=== PATIENT | male | born 1950 | race Caucasian/White ===

== ENCOUNTER 2017-12-24 21:26 | Inpatient (IN) ==
[2017-12-24] MEDS ORDERED: Naloxone 0.4 MG/ML INJ IVP PRN (23:04)
[2017-12-24] MEDS ORDERED: Acetaminophen 325 MG TABLET PO PRN (23:04)
[2017-12-24] MEDS ORDERED: Ipratropium/Albuterol Neb 3 ML IH PRN (23:04)
[2017-12-24] MEDS ORDERED: *HR* LORazepam 2 MG/ML VIAL IVP PRN (23:04)
--- NOTE | 2017-12-24 23:16 | Internal Med History&Physical ---
Date of Encounter: 12/24/17 Time of Encounter: 22:45 Internal Medicine - H&P: HPI Chief complaint: ankle fracture Admitted From: Hospital to Hospital Transfer Plans for Post Hospital Care: Home History of present illness: Mr. Kyle is a 67 year old male who presents to [facility] in transfer from [facility] ER after sustaining a trimalleolar fracture of his left ankle. He tripped over a step at his house earlier this evening, and this led to the ankle fracture. He was somewhat intoxicated. He had an elevated alcohol level at the ER at [place]. He had his ankle reduced and splinted in the ER there by Dr. Watson. Patient was unable to go home due to intolerable pain and inability to ambulate. Therefore, a phone call was made to [facility] for transfer for surgical repair. Dr. Watson spoke with Dr. Leavitt from podiatry. At that point, agreement was made to transfer patient here for ongoing medical care and surgical management. Upon arrival, I saw the patient at bedside. He appears to be in no acute distress other than minimal pain in his left ankle. He admits he drinks 6-7 beers per day on a daily basis. He does not feel as though he was drunk today. He is a bit somber, however, as he attended his youngest brother's today. He denies ever going through alcohol withdrawal. However, he has not stopped drinking in quite some time. He denies any other trauma or injury other than his ankle. He did not injure his head or chest wall or abdomen. I reviewed his labs from [place] and note that he has hyponatremia, most likely secondary to chronic alcohol abuse. We will recheck stat labs and repeat them in the morning as well. He denies any cardiac problems, palpitations, dyspnea on exertion, anginal symptoms, and/or prior history of heart disease. His biggest risk factor for perioperative palpitations are his alcohol use/abuse and hyponatremia. Past Med Surg Social Fam HX - Past Medical History Attestation: Yes The following information was validated with the patient. Source: patient, other ([place] ER records) Medical history: arthritis, COPD, hyperlipidemia, hypertension Additional medical history: TREMORS Psychiatric history: anxiety - Past Surgical History Surgical History: other Additional surgical history: skin graft of right arm - Social History Smoking Status: Current every day smoker Smokeless Tobacco Status: No Alcohol use: occasionally, heavy, recent Drug use: none Current living situation: Home, With Family Activity Level: Independent ambulation Recent Out of Country Travel Within the Last 8 Weeks: No - Family History Mother Family Member Ethnicity: Non- Living Status: Age at : 76 Hx Family Cardiac Disorders: No Hx Family Cancer: Yes Hx Family Endocrine Disorder: Yes (DM) Father Living Status: Still Living Hx Family Cardiac Disorders: No Hx Family Respiratory Disorders: No Internal Medicine - H&P: Meds Unable To Obtain [Unable to Obtain] 12/24/17 [History] Allergy/AdvReac Type Severity Reaction Status Date / Time No Known Allergies Allergy Verified 12/24/17 19:44 - Constitutional Constitutional: no chills, no fever(s), no night sweats - EENT Eyes: no blurry vision, no change in vision Ears: no ear pain, no tinnitus Nose, mouth and throat: no nasal congestion, no sinus pressure, no sore throat - Cardiovascular Cardiovascular ROS IM: no chest pain, no diaphoresis, no dyspnea, no dyspnea on exertion, no irregular heart rhythm, no lightheadedness, no orthopnea, no syncope - Respiratory Respiratory: no cough, no dyspnea, no hemoptysis, no wheezing, no chest congestion, no excessive phlegm production, no change in phlegm color - Gastrointestinal Gastrointestinal: no abdominal pain, no diarrhea, no heartburn, no hematemesis, no hematochezia, no melena, no vomiting - Genitourinary Genitourinary ROS male: no dysuria, no flank pain, no hematuria - Musculoskeletal Musculoskeletal ROS IM: arthralgias, deformity (left ankle), joint swelling (left ankle) - Integumentary Integumentary IM: no rash, no jaundice - Neurological Neurological ROS: no behavioral changes, no confusion, no dizziness, no focal weakness, no frequent falls, no headache(s), no numbness, no paresthesias - Psychiatric Psychiatric: no anxiety, no depression - Endocrine Endocrine IM: no polydipsia, no polyuria - Allergic/Immunologic Allergic/Immunologic: no wheezing, no GI upset with certain foods - Constitutional General appearance: Present: cooperative, A&O X 3, pleasant, no acute distress, answers questions appropriately Exam: appears euvolemic - Head Head exam: Present: atraumatic, normal inspection - Eye Eye exam: Present: EOMI, PERRL. Absent: scleral icterus Pupils: Present: PERRL - ENT ENT exam: Present: mucous membranes moist, normal exam, normal oropharynx - Neck Neck exam general surgery: Present: full ROM, supple. Absent: tenderness, nuchal rigidity, thyromegaly - Respiratory Respiratory exam: Present: CTAB. Absent: chest wall tenderness, rales, respiratory distress, rhonchi, wheezes - Cardiovascular Cardiovascular exam: Present: RRR, +S1, +S2. Absent: diastolic murmur, systolic murmur - GI/Abdominal GI/Abdominal exam: Present: normal bowel sounds, soft. Absent: guarding, hepatomegaly, mass, rebound, splenomegaly, tenderness - Extremities Exam Extremities exam: Present: full ROM, normal capillary refill, tenderness (left ankle; splinted and wrapped), warm, radial pulses palpable and symmetrical. Absent: calf tenderness, pedal edema - Back Exam Back exam: Absent: CVA tenderness (L), CVA tenderness (R) - Neurological Exam Neurological exam: Present: alert, CN II-XII intact, oriented X3, no focal deficits, strengths equal and symetr throughout. Absent: motor sensory deficit - Psychiatric Psychiatric exam: Present: normal affect, normal mood - Skin Skin exam: Present: dry, warm. Absent: rash Internal Med - H&P Results - Labs Labs: I reviewed his labs from [place] and include the following: WBC 7.9 Hemoglobin 16.4 Hematocrit 40.2 Platelets 156 Sodium 125 Potassium 4.0 Chloride 89 Carbon dioxide 26 BUN 7 Creatinine 0.62 Ethyl alcohol level 219 - Assessment and plan (1) Dislocation of ankle, left, closed Current Visit: Yes Status: Acute Assessment and plan: 1. S/P closed reduction per Dr. Watson. 2. Consult Podiatry for surgical repair. 3. Pain control as needed. Qualifiers: Encounter type: subsequent encounter Qualified Code(s): S93.05XD - Dislocation of left ankle joint, subsequent encounter (2) Alcohol intoxication Current Visit: Yes Status: Acute Assessment and plan: 1. Monitor clinically. 2. Will place on CIWA protocol and schedule Librium in an attempt to avoid alcohol withdrawal. 3. Will order thiamine/folate/MVI. Qualifiers: Complication of substance-induced condition: uncomplicated Qualified Code(s): F10.920 - Alcohol use, unspecified with intoxication, uncomplicated (3) Hyponatremia Current Visit: Yes Status: Acute Assessment and plan: 1. Likely due to chronic alcoholism. 2. Given smoking history, will order baseline CXR as underlying lung cancer may present with SIADH. (4) DVT prophylaxis Current Visit: Yes Status: Acute Assessment and plan: 1. Heparin SQ.
[2017-12-24] MEDS: Vitamin B Complex/Vit C/Vit E 1 EACH TABLET PO SCH (23:45)
[2017-12-24] MEDS: Folic Acid 1 MG TABLET PO SCH (23:45)
[2017-12-24] MEDS: Nicotine 21 MG PATCH.TD24 TD SCH (23:45)
[2017-12-24] MEDS: Thiamine (B-1) 100 MG TABLET PO SCH (23:45)
[2017-12-25 00:06] LABS: BUN/Creatinine Ratio 10 (6-26); Blood Urea Nitrogen 6 mg/dL (8-23); Calcium 8.7 mg/dL (8.6-10.3); Carbon Dioxide 24 mEq/L (23-29); Chloride 92 mEq/L (98-107); Glucose 98 mg/dL (70-105); Osmolality,Calculated 260 (280-300); Potassium 4.1 mEq/L (3.5-5.1); Sodium 126 mEq/L (136-145); eGFR For Non-African Americans > 60 (> 60)
[2017-12-25] MEDS: *HR* HYDROcodone/Acet 5/325 mg TABLET PO PRN ×3 (02:34→22:03)
[2017-12-25] MEDS: Primidone 50 MG TABLET PO SCH ×2 (02:35→20:34)
[2017-12-25 03:44] LABS: Basophils % 0.4 %; Eosinophils # 0.1 K/mcL (0.0-0.6); Eosinophils % 1.9 %; Hematocrit 39.6 % (37.5-50.1); Hemoglobin 13.9 g/dL (12.9-16.9); Immature Granulocytes % 0.1 % (0-4); Immature Platelets 3.9 % (1.1-6.1); Lymphocytes # 2.6 K/mcL (0.6-4.6); Lymphocytes % 37.2 %; Mean Corpuscular HGB Conc 35.1 g/dL (31.6-35.5); Mean Corpuscular Hemoglobin 30.5 pg (28.0-33.3); Mean Platelet Volume 9.7 fL (9.4-12.4); Monocytes # 0.9 K/mcL (0.0-1.3); Monocytes % 12.8 %; Neutrophils # 3.3 K/mcL (1.6-8.9); Platelet Count 155 K/mcL (140-400); Red Blood Count 4.55 M/mcL (4.19-5.50); Red Cell Distribution Width 12.9 % (11.5-14.5); Segmented Neutrophils % 47.6 %
[2017-12-25 03:51] LABS: INR 1.1; Prothrombin Time 12.5 Seconds (9.4-12.1)
[2017-12-25 03:54] LABS: Activated Partial Thrombo Time 32.4 Seconds (26.0-36.0)
[2017-12-25 04:05] LABS: Alanine Aminotransferase 16 Units/L (7-52); Albumin 3.9 g/dL (3.5-5.7); Albumin/Globulin Ratio 1.3 (1.1-2.2); Alkaline Phosphatase 78 Units/L (34-104); Aspartate Amino Transferase 27 Units/L (13-39); BUN/Creatinine Ratio 9 (6-26); Bilirubin,Total 0.6 mg/dL (0.3-1.0); Blood Urea Nitrogen 8 mg/dL (8-23); Calcium 8.9 mg/dL (8.6-10.3); Carbon Dioxide 23 mEq/L (23-29); Chloride 93 mEq/L (98-107); Ethanol 92 mg/dL (Less than 10); Globulin 3.1 g/dL (2.4-3.5); Glucose 97 mg/dL (70-105); Magnesium 1.6 mg/dL (1.6-2.6); Osmolality,Calculated 262 (280-300); Potassium 3.8 mEq/L (3.5-5.1); Sodium 127 mEq/L (136-145); eGFR For Non-African Americans > 60 (> 60)
[2017-12-25] MEDS: *HR* Heparin 5,000 UNIT/ML VIAL SQ SCH ×2 (06:18→17:22)
[2017-12-25] MEDS: Nicotine 21 MG PATCH.TD24 TD SCH (07:42)
[2017-12-25] MEDS: Thiamine (B-1) 100 MG TABLET PO SCH (07:49)
[2017-12-25] MEDS: Folic Acid 1 MG TABLET PO SCH (07:49)
[2017-12-25] MEDS: Cholecalciferol (D-3) 1,000 UNIT TABLET PO SCH (07:49)
[2017-12-25] MEDS: Vitamin B Complex/Vit C/Vit E 1 EACH TABLET PO SCH (07:49)
--- NOTE | 2017-12-25 09:51 | Podiatry Consult Note ---
Date of Encounter: 12/25/17 Time of Encounter: 09:48 Assessment and Plan (1) Ankle fracture Current visit: No Status: Acute 1. Radiographs and CT reviewed, indicating a displaced trimalleolar left ankle fracture. 2. Surgical intervention warranted given the instability of the ankle even after closed reduction. 3. Plan for ORIF left ankle fracture tomorrow with Dr. Luigi Simon. Please make patient NPO at midnight tonight. 4. Please make sure patient is medically stable prior to surgical intervention and contact Podiatry if any problems arise. 5. NWB left lower extremity in splint which was placed again today. Keep limb elevated for edema control. Qualifiers: Encounter type: initial encounter Fracture type: closed Laterality: left Qualified Code(s): S82.892A - Other fracture of left lower leg, initial encounter for closed fracture History of Present Illness Chief complaint: left ankle fracture HPI: Mr. Kyle is a 67 year old male who presents to [facility] in transfer from [facility] ER after sustaining a trimalleolar fracture of his left ankle. He tripped over a step at his house yesterday and felt a pop in his ankle. He reported intoxication on admission. The ankle was closed reduced in the ED and he was admitted with plans for ORIF of the ankle. Podiatry was consulted to discuss surgical treatment options. He feels well today but does report pain and swelling in the ankle. He has been NWB in a posterior splint. Past Med Surg Social Fam HX - Past Medical History Medical history: arthritis, COPD, hyperlipidemia, hypertension Additional medical history: TREMORS Psychiatric history: anxiety - Past Surgical History Surgical History: other Additional surgical history: skin graft of right arm - Social History Smoking Status: Current every day smoker Smokeless Tobacco Status: No Alcohol use: occasionally, heavy, recent Drug use: none - Family History Mother Family Member Ethnicity: Non- Living Status: Age at : 76 Hx Family Cardiac Disorders: No Hx Family Cancer: Yes Hx Family Endocrine Disorder: Yes (DM) Father Living Status: Still Living Hx Family Cardiac Disorders: No Hx Family Respiratory Disorders: No Medications and Allergies Buspirone HCl [Buspar] 10 mg PO BID 12/25/17 [History] Calcium Carbonate/Vitamin D3 [Calcium 500-Vit D3 200 Tablet] 1 each PO BID 12/25/17 [History] Cholecalciferol (Vitamin D3) [Vitamin D] 1,000 unit PO DAILY 12/25/17 [History] Guaifenesin [Mucinex] 600 mg PO Q12HR 12/25/17 [History] Primidone [Mysoline] 50 mg PO HS 12/25/17 [History] Propranolol HCl 10 mg PO TID 12/25/17 [History] Simvastatin [Zocor] 20 mg PO HS 12/25/17 [History] 3 Allergy/AdvReac Type Severity Reaction Status Date / Time No Known Allergies Allergy Verified 12/24/17 19:44 All Systems Reviewed: The remainder of the systems were reviewed and are negative Physical Exam - Constitutional Vitals: Temp Pulse Resp BP Pulse Ox 97.7 F 56 18 123/62 93 12/25/17 05:26 12/25/17 05:26 12/25/17 05:26 12/25/17 05:26 12/25/17 05:26 Exam: Alert, oriented x3. Vascular: Pulses palpable bilateral. Capillary refill brisk to all digits on left foot. Skin temperature warm to warm comparing toes to legs. Dermatology: No open wounds or lesions. Minimal ecchymosis. Musculoskeletal: Tenderness left medal malleolus, and lateral malleolus. No pain at PT tendon insertion or 5th metatarsal base. There is tenderness at proximal tibia. Moderate edema left ankle. Able to actively move all 5 digits on left. Neuro: Sensations intact to light touch all 5 digits on left. Results - Labs Result Diagrams: 12/25/17 03:16 12/25/17 03:16 Labs: Abnormal lab results PT 12.5 Seconds (9.4-12.1) H 12/25/17 03:16 Sodium 127 mEq/L (136-145) L 12/25/17 03:16 Chloride 93 mEq/L (98-107) L 12/25/17 03:16 Calculated Osmolality 262 (280-300) L 12/25/17 03:16 Ethyl Alcohol 92 mg/dL (Less than 10) H 12/25/17 03:16 H & H 12/25/17 Range/Units 03:16 Hgb 13.9 D (12.9-16.9) g/dL Hct 39.6 (37.5-50.1) % All other labs normal. Consult Discharge Plan - Plan Referrals: NONE,PCP [Primary Care Provider] -
--- NOTE | 2017-12-25 10:20 | Internal Med Progress Note ---
Hospitalist Progress Note - Encounter Date of Encounter: 12/25/17 Time of Encounter: 10:04 - Subjective Interval History: Patient seen and examined this morning. No acute overnight urine. Complained of pain in his left foot. No fever or chills nausea vomiting diarrhea. Slightly bradycardic. Denies any chest pain, palpitation, shortness of breath or abdominal pain. No bowel or bladder complaints - Exam Vitals: Temp Pulse Resp BP Pulse Ox 97.7 F 56 18 123/62 93 12/25/17 05:26 12/25/17 05:26 12/25/17 05:26 12/25/17 05:26 12/25/17 05:26 Exam: General: In no acute distress. Conversant. Respiratory exam: CTAB. no accessory muscle use, rales, rhonchi, wheezes Cardiovascular exam: RRR, +S1, +S2. no murmur, gallop, rubs. GI/Abdominal exam: Non-tender, Non-distended, normal bowel sounds, soft, no peritoneal signs. Extremities exam: no pedal edema, left leg splint present. Neurological exam: CN II-XII intact, AO X3, no focal deficits. no pronater drift, facial droop, speech deficit Skin exam: No skin rash, ulcer, purpura or ecchymosis. - Assessment and Plan (1) Dislocation of ankle, left, closed Current Visit: Yes Status: Inactive (2) Alcohol intoxication Current Visit: Yes Status: Inactive (3) Hyponatremia Current Visit: Yes Status: Inactive (4) DVT prophylaxis Current Visit: Yes Status: Acute - Summary of Assessment and Plan Summary of Assessment and Plan: Trimalleolar left ankle fracture - S/P closed reduction per Dr. Watson. - Pain control with acetaminophen, [place] and Toradol when necessary - Nothing by mouth after midnight for ORIF tomorrow. Podiatry following - No history of hypertension, diabetes, CAD or heart failure. Current smoker. Low risk for surgical complications.. Sinus bradycardia on EKG - Patient on propranolol and primidone for tremors - We will hold propranolol for today. QTC prolonged on EKG from yesterday. - Repeat EKG today Alcohol intoxication - Monitor clinically for withdrawal. No signs currently. Denies any previous history. - c/w CIWA protocol and schedule Librium in an attempt to avoid alcohol withdrawal. - c/w thiamine/folate/MVI. Hyponatremia - Possibly from chronic alcoholism. - CXR with no acute findings. Tobacco dependence - Counseled on cessation. - Continue with nicotine patch DVT prophylaxis - Heparin SQ. - Time Spent with Patient Total time spent is greater than 50% in coordination of care (as documented) at patient's floor/unit and/or counseling patient: Internal Medicine: Result - Labs CBC & Chem 7: 12/25/17 03:16 12/25/17 03:16 Labs: Short CBC 12/25/17 Range/Units 03:16 WBC 6.9 (4.3-11.1) K/mcL Hgb 13.9 D (12.9-16.9) g/dL Hct 39.6 (37.5-50.1) % Plt Count 155 (140-400) K/mcL Neutrophils # 3.3 (1.6-8.9) K/mcL BMP 12/24/17 12/25/17 23:24 03:16 Sodium 126 L 127 L Potassium 4.1 3.8 Chloride 92 L 93 L Carbon Dioxide 24 23 BUN 6 L 8 Creatinine 0.58 L 0.87 Glucose 98 97 Calcium 8.7 8.9 Liver Function 12/25/17 Range/Units 03:16 Total Bilirubin 0.6 (0.3-1.0) mg/dL AST 27 (13-39) Units/L ALT 16 (7-52) Units/L Alkaline Phosphatase 78 (34-104) Units/L Albumin 3.9 (3.5-5.7) g/dL - ABG Interpretation ABG results: PT/INR, D-dimer PT 12.5 Seconds (9.4-12.1) H 12/25/17 03:16 - Impressions Impressions Chest X-Ray 12/25/17 00:01 IMPRESSION: No acute findings in the chest D/ / Valeria Mullins MD / Valeria Mullins MD Interpreting Provider: Valeria Mullins MD Ankle CT 12/25/17 07:45 IMPRESSION: 1. Acute displaced intra-articular posterior malleolus fracture with 7 mm posterior displacement of the dominant posterior malleolus fracture component and 3 mm of articular offset at the posterior tibiotalar joint. Posterior dislocation of the talus in relation to the majority of the distal tibial articular surface. 2. Acute comminuted posteriorly displaced fracture through the distal fibular metaphysis with tiny associated fracture fragments. 3. Transversely oriented slightly displaced medial malleolus fracture. Associated fracture components extend to the medial aspect of the distal tibial metaphysis. 4. Moderate to severe soft tissue swelling and hemorrhage around the ankle and inferior aspect of the left lower leg. 5. Moderate tibiotalar joint effusion. 6. Underlying diffuse osteopenia. D/ / 12/25/2017 10:03:27 Estuardo Daigle MD / paige Interpreting Provider: Estuardo Daigle MD Consult Discharge Plan - Plan Referrals: NONE,PCP [Primary Care Provider] - ____ (1) Dislocation of ankle, left, closed Qualifiers: Encounter type: subsequent encounter Qualified Code(s): S93.05XD - Dislocation of left ankle joint, subsequent encounter (2) Alcohol intoxication Qualifiers: Complication of substance-induced condition: uncomplicated Qualified Code(s): F10.920 - Alcohol use, unspecified with intoxication, uncomplicated
[2017-12-25] MEDS: Ketorolac 15 MG/ML VIAL IVP PRN ×2 (10:28→20:38)
[2017-12-25] MEDS ORDERED: Nicotine 21 MG PATCH.TD24 TD SCH (23:15)
[2017-12-26 04:18] LABS: BUN/Creatinine Ratio 17 (6-26); Blood Urea Nitrogen 10 mg/dL (8-23); Carbon Dioxide 27 mEq/L (23-29); Chloride 95 mEq/L (98-107); Glucose 98 mg/dL (70-105); Osmolality,Calculated 263 (280-300); Potassium 4.3 mEq/L (3.5-5.1); Sodium 127 mEq/L (136-145); eGFR For Non-African Americans > 60 (> 60)
[2017-12-26] MEDS: *HR* Heparin 5,000 UNIT/ML VIAL SQ SCH (05:17)
[2017-12-26] MEDS: *HR* HYDROcodone/Acet 5/325 mg TABLET PO PRN (08:22)
[2017-12-26] MEDS: Folic Acid 1 MG TABLET PO SCH (09:12)
[2017-12-26] MEDS: Vitamin B Complex/Vit C/Vit E 1 EACH TABLET PO SCH (09:12)
[2017-12-26] MEDS: Cholecalciferol (D-3) 1,000 UNIT TABLET PO SCH (09:13)
[2017-12-26] MEDS: Thiamine (B-1) 100 MG TABLET PO SCH (09:13)
--- NOTE | 2017-12-26 09:26 | Internal Med Progress Note ---
Hospitalist Progress Note - Encounter Date of Encounter: 12/26/17 Time of Encounter: 08:26 - Subjective Interval History: Patient seen and examined this morning. No acute overnight urine. Pain more or less controlled. No fever or chills nausea vomiting diarrhea. No chest pain, palpitation, shortness of breath or abdominal pain. NPO for surgery. - Exam Vitals: Temp Pulse Resp BP Pulse Ox 98.1 F 79 18 148/80 93 12/26/17 07:00 12/26/17 07:00 12/26/17 07:00 12/26/17 07:00 12/26/17 07:00 Exam: General: In no acute distress. Conversant. Respiratory exam: CTAB. no accessory muscle use, rales, rhonchi, wheezes Cardiovascular exam: RRR, +S1, +S2. no murmur, gallop, rubs. GI/Abdominal exam: Non-tender, Non-distended, normal bowel sounds, soft, no peritoneal signs. Extremities exam: no pedal edema, left leg splint present. Neurological exam: CN II-XII intact, AO X3, no focal deficits. no pronater drift, facial droop, speech deficit Skin exam: No skin rash, ulcer, purpura or ecchymosis. - Assessment and Plan (1) Dislocation of ankle, left, closed Current Visit: Yes Status: Inactive (2) Alcohol intoxication Current Visit: Yes Status: Inactive (3) Hyponatremia Current Visit: Yes Status: Inactive (4) DVT prophylaxis Current Visit: Yes Status: Acute - Summary of Assessment and Plan Summary of Assessment and Plan: Trimalleolar left ankle fracture - S/P closed reduction per Dr. Watson. - Pain control with acetaminophen, [place] and Toradol when necessary - No history of hypertension, diabetes, CAD or heart failure. Current smoker. Low risk for surgical complications.. - NPO for ORIF today. Podiatry following Sinus bradycardia on EKG - Patient on propranolol and primidone for tremors - hold propranolol - Repeat EKG with NSR Alcohol intoxication - Monitor clinically for withdrawal. No signs currently. Denies any previous history. - c/w CIWA protocol and schedule Librium in an attempt to avoid alcohol withdrawal. PRN ativan while NPO. - c/w thiamine/folate/MVI. Hyponatremia - Possibly from chronic alcoholism. - CXR with no acute findings. Tobacco dependence - Counseled on cessation. - Continue with nicotine patch DVT prophylaxis - Heparin SQ. - Time Spent with Patient Total time spent is greater than 50% in coordination of care (as documented) at patient's floor/unit and/or counseling patient: Internal Medicine: Result - Labs CBC & Chem 7: 12/25/17 03:16 12/26/17 03:44 Labs: BMP 12/26/17 03:44 Sodium 127 L Potassium 4.3 Chloride 95 L Carbon Dioxide 27 BUN 10 Creatinine 0.58 L Glucose 98 Calcium 9.0 - ABG Interpretation ABG results: PT/INR, D-dimer PT 12.5 Seconds (9.4-12.1) H 12/25/17 03:16 - Impressions Impressions Ankle CT 12/25/17 07:45 IMPRESSION: 1. Acute displaced intra-articular posterior malleolus fracture with 7 mm posterior displacement of the dominant posterior malleolus fracture component and 3 mm of articular offset at the posterior tibiotalar joint. Posterior dislocation of the talus in relation to the majority of the distal tibial articular surface. 2. Acute comminuted posteriorly displaced fracture through the distal fibular metaphysis with tiny associated fracture fragments. 3. Transversely oriented slightly displaced medial malleolus fracture. Associated fracture components extend to the medial aspect of the distal tibial metaphysis. 4. Moderate to severe soft tissue swelling and hemorrhage around the ankle and inferior aspect of the left lower leg. 5. Moderate tibiotalar joint effusion. 6. Underlying diffuse osteopenia. D/ / 12/25/2017 10:03:27 Estuardo Daigle MD / paige Interpreting Provider: Estuardo Daigle MD Consult Discharge Plan - Plan Referrals: NONE,PCP [Non-Partnered Physician] - (1) Dislocation of ankle, left, closed Qualifiers: Encounter type: subsequent encounter Qualified Code(s): S93.05XD - Dislocation of left ankle joint, subsequent encounter (2) Alcohol intoxication Qualifiers: Complication of substance-induced condition: uncomplicated Qualified Code(s): F10.920 - Alcohol use, unspecified with intoxication, uncomplicated
[2017-12-26] MEDS ORDERED: *HR* FentaNYL (PF) 100 MCG/2 ML VIAL IVP ONE ×2 (12:51→18:54)
[2017-12-26] MEDS ORDERED: ROPIVACAINE HCL/PF 0.5% 30 ML VIAL ONE (13:37)
[2017-12-26] MEDS ORDERED: Bupivacaine/Clonidine Syringe 1 EACH SYRINGE ONE (13:38)
--- NOTE | 2017-12-26 13:44 | Anesthesia Evaluation PreOp ---
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: Denies Any Significant HX Other Medical History: Denies Any Significant HX Anesthesia History: No Prior Anesthetic Complications Alcohol Use: occasionally, heavy, recent Drug use: none Medications and Allergies Aspirin [Adult Aspirin Regimen] 81 mg PO DAILY 12/25/17 [History] Buspirone HCl [Buspar] 10 mg PO BID 12/25/17 [History] Calcium Carbonate/Vitamin D3 [Calcium 500-Vit D3 200 Tablet] 1 each PO BID 12/25/17 [History] Cholecalciferol (Vitamin D3) [Vitamin D] 1,000 unit PO DAILY 12/25/17 [History] Guaifenesin [Mucinex] 600 mg PO HS 12/25/17 [History] Primidone [Mysoline] 50 mg PO HS 12/25/17 [History] Propranolol HCl 10 mg PO TID 12/25/17 [History] Simvastatin [Zocor] 20 mg PO HS 12/25/17 [History] Allergy/AdvReac Type Severity Reaction Status Date / Time No Known Allergies Allergy Verified 12/24/17 19:44 - Meds/Allergy Pre-op Review Medications Reviewed: Yes Allergies Reviewed: Yes Beta Blockers on Current Med List: No Anesthesia Results - Labs 12/25/17 03:16 12/26/17 03:44 Anesthesia Exam Vital Signs/O2 Sat/Glucose, Most Current Temp Pulse Resp BP Pulse Ox 12/26/17 11:21 98.3 F 75 18 157/82 93 Height: 5'9 Weight: 175 lbs NPO (# of Hours): MN Pain Scale: 0 - HEENT Pupil (Motor): Pupils equal, EOMI Mallampati: III Teeth: Edentulous Oral Opening: Less than or equal to 3 - TELEPHONE TECHNICIAN LOC: Oriented TELEPHONE TECHNICIAN Sensory: Normal: RUE, LUE, RLE, LLE, Face - Cardiac Rhythm: Regular Murmur: None JVD: No Carotid Bruit: No - Pulmonary Breath Sounds: bilateral Clear Respiratory Effort: Symmetrical Anesthesia Assess/Plan ASA Score: 3 (HTN COPD Tobacco) Anesthetic Plan: General, Regional Nerve Block Regional Nerve Block Plan: Adductor canal, Popliteal Autologous Blood: No Monitoring Plan: Standard Monitors Recovery Plan: PACU (Discussed GA, RA, agrees to proceed)
[2017-12-26] MEDS ORDERED: *HR* FentaNYL (PF) 100 MCG/2 ML VIAL ONE ×2 (13:46→16:33)
[2017-12-26] MEDS ORDERED: *HR* Midazolam HCl 2 MG/2 ML VIAL ONE (13:46)
--- NOTE | 2017-12-26 14:09 | Anesthesia Procedures ---
Date of Encounter: 12/26/17 Time of Encounter: 14:06 Procedures: Anesthesia - Nerve Block Procedure Date: 12/26/17 Time: 14:06 Allergies/Adv Reactions: nka Pre-op Diagnosis: left ankle fx Surgical Procedure: orif left ankle Checklist: Correct Patient Identifier, Correct procedure, History checked Correct side: Left Blood Thinner: No Monitor Applied: EKG, BP, Pulse Oximetry Supplemental Oxygen via Nasal Cannula (L/min): 2 Sedation: Versed (mg): 2 Sedation: Fentanyl (mcg): 100 Indication: Post Op Analgesia Pre-op Neuro Deficits: No Block Type: Popliteal, Other (adductor canal) Catheter placed: No Sterile Technique: Yes Ultrasound used: Yes Anatomy identified: Yes Visual spread of Local: Yes Neuro Stimulation: Yes Nerve Stimulator Range: >0.4 - 0.6 mA (for popliteal) Blood on Needle Aspiration: No Smooth Injection of Local: Yes Pain with Injection of Local: No Prep: Chlorhexadine Needle: 22 x 50 mm Stimuplex (for add. canal), 21 x 100 mm Stimuplex (for popliteal) Local: 0.25% Bupivicaine w/Clonidine 20 mcg/cc (for add. canal - 30ml ), Ropivacaine (0.5% for popliteal 30ml) Volume (cc): 60 Number of Attempts: 1 Complications: None/effective block Vitals: Vital Signs/O2 Sat/Glucose, Most Current Temp Pulse Resp BP Pulse Ox 12/26/17 13:52 74 16 158/83 94 12/26/17 11:21 98.3 F 75 18 157/82 93 Comments: pt tolerated procedure well. no complications. vss.
[2017-12-26] MEDS ORDERED: *HR* Propofol 200 MG/20 ML VIAL IVP ONE (14:15)
[2017-12-26] MEDS ORDERED: Ondansetron 4 MG/2 ML VIAL ONE (14:15)
[2017-12-26] MEDS ORDERED: Lidocaine -MPF 2% 2 ML VIAL ONE (14:15)
[2017-12-26] MEDS ORDERED: Dexamethasone 4 MG/ML VIAL ONE (14:15)
[2017-12-26] MEDS ORDERED: ceFAZolin 2,000 MG in Water for inj. (sterile) 20 ML 10 ML IVP ONE (14:20)
[2017-12-26] MEDS ORDERED: CeFAZolin Syr 2,000MG/20 ML 2,000 MG/20 ML SYRINGE IVPB ONE (15:00)
[2017-12-26] MEDS ORDERED: *HR* Promethazine 25 MG/ML VIAL IVP PRN ×2 (15:40→18:54)
[2017-12-26] MEDS ORDERED: *HR* OxyCODONE/APAP 5/325 TABLET PO PRN ×2 (15:40→18:54)
[2017-12-26] MEDS ORDERED: *HR* HYDROmorphone (PF) 1 MG/ML SYRINGE IVP PRN ×2 (15:40→18:54)
[2017-12-26] MEDS: Albuterol 2.5 MG/3 ML NEBULIZER IH ONE ×2 (16:27→18:22)
--- NOTE | 2017-12-26 17:51 | Orthopedic Operative Note ---
Date of procedure: 12/26/17 Pre-op diagnosis: left trimalleolar ankle fracture Post-op diagnosis: same Procedure: 12/26/17 17:50 1. Open reduction with internal fixation left trimalleolar ankle fracture with fixation of posterior malleolus Implants: 1. Synthes 7 hole 1/3 tubular plate 2. Synthes 3.5mm cortical screw x1 3. Synthes 3.5mm locking screw x3 4. Synthes 3.5mm cancellous screw x1 5. Synthes 4.0mm cannulated partially threaded screw x3 Complications: None Anesthesia: DEBORAA, regional Surgeon: Luigi Simon Was there an chemist assistant present: No Estimated blood loss (cc): 15 Tourniquet Time (Minutes): 120 Specimen: None Condition: stable Disposition: floor Procedure in Detail: 12/26/17 17:54 INDICATIONS AND CONSENT Don Kyle is a 67 year old male who originally presented with left ankle pain and injury from a fall from steps in the home on 12/24/2017 while intoxicated. Radiographs indicated a displaced trimalleolar ankle fracture which was closed reduced in the ED. CT showed evidence of a comminuted medial malleolus fracture, spiral oblique distal fibular fracture, and posterior malleolar fracture with displacement. Given the radiographic findings, surgical intervention was warranted. The patient elected to proceed with open reduction with internal fixation of the ankle fracture. We discussed the above procedures in detail. This included a discussion on the indications, contraindications, and possible complications including but not limited to: infection, non-healing wound, pain, swelling, bleeding, blood clots, heart complications, nerve injury, vascular injury, loss of limb, loss of life, non-union, malunion, arthritis, hardware failure, and need for further surgery. Patient has a long history of smoking which places him at risk for non-union or wound complications. We also reviewed the expected post operative course, including a discussion on the non- weightbearing status after this procedure. He related understanding of our discussion regarding this surgery. All questions were answered to his satisfaction, and a proper written informed consent was obtained, signed, and placed in the chart. No guarantees were given, stated or implied, as to the out come of this procedure. PROCEDURE IN DETAIL The patient was seen in the pre-operative holding area by Anesthesia, where he was consented for General Anesthesia with regional popliteal fossa and saphenous nerve block. The popliteal fossa and saphenous nerve blocks were performed under ultrasound guidance by Anesthesia in the pre-operative holding area. The patient was then brought back to the operative suite and placed on the operating room table in the prone position due to plans of fixing the posterior malleolus fracture. A sign-in was performed. General anesthesia was then initiated [facility]. A well-padded pneumatic left thigh tourniquet was then placed. Next, the left lower leg was scrubbed, prepped, and draped in the usual aseptic manner. A Amber Time-Out was performed, and all parties in the room agreed. Next, an Esmarch was used to exsanguinate the left foot. The pneumatic thigh tourniquet was inflated to 300 mmHg. Attention was then directed to the left postero-lateral leg where an approximate 7 cm linear incision was made posterior to the fibula. The incision was carried deep to the level of peroneal tendons, paying careful attention to retract the lesser saphenous vein and sural nerve. Hematoma and signs of post-traumatic injury were evident. The hematoma was evacuated. The incision was carried down to the level of bone in anatomic layers, paying particular attention to protect and retract all vital neurovascular structures and the peroneal tendons. With the incision down to bone, the fracture site was identified and noted to be a displaced, spiral oblique fracture. A jean elevator was used to elevate the periosteum both proximal and distal to the fracture site prior to plate fixation. The wound was flushed with copious amounts of sterile saline. The fracture was reduced and stabilized utilizing a point to point bone clamp. The fibula was held out to appropriate anatomic length, confirmed and verified under fluoroscopy. A 3.5mm lag screw, by AO technique, was thrown obliquely and perpendicular to the fracture site from posterior distal to proximal distal for appropriate compression and stability. Next a 7 hole hole 1/3 tubular neutralization plate was placed laterally for added stability across the fracture site which was fixated using one nonlocking 3.5mm screw proximally, two 3.5mm locking screws proximally, one 3.5mm locking screw distally, and one 4.0mm cancellous screw distally. Stability at the fracture site was noted both clinically and under fluoroscopy with maintenance of reduction and confucianism of fibular length. Our attention was then directed to the posterior malleolus fracture, which was noted to involve greater than 25% of the tibial plafond on CT scan with dorsal displacement. Decision was made to fixate the posterior malleolus fracture. The soft tissue lateral to the Achilles tendon was retracted, and a cannulated 4.0mm screw was placed from posterior to anterior to fixate the fragment. Attention was then directed to the displaced, comminuted medial malleolus fracture. A linear incision was made at the distal aspect of the medial malleolus. The incision was carried deep to the level of bone. The fracture fragments were reduced then temporarily fixated with two k-wires. Two 4.0mm cannulated partially threaded screws were then placed from distal medial to proximal lateral through the medial malleolus fracture to fixate the fragment. Stability of the hardware and proper anatomic reduction of the ankle mortise was noted under fluoroscopy. The guidewires were removed. The wounds were then flushed with copious amounts of normal sterile saline. Next, deep and subcutaneous tissues were re-approximated using 2-0 vicryl and 3-0 vicryl, and the skin was re-approximated under minimal tension using ruthy to the lateral ankle and 4-0 nylon to the medial ankle wound. A dry, sterile dressing was then applied, which consisted of: Xeroform, 4x4's, Kerlix fluffs, ABDs, and Kerlix roll. The left thigh tourniquet was then deflated, and a proper hyperemic response was noted to the digits on the left foot. Capillary refill time of the toes on the left foot was also noted to be brisk at this time. A well-padded posterior splint was applied with the foot 90 degrees relative to the lower leg. The posterior splint was then secured to the foot and leg using an ROSA MARIA bandage. A sign-out was performed. The patient tolerated anesthesia and the procedure well, and was transferred to PAC-U with vital signs stable and vascular status intact to the left lower extremity. Needle and sponge counts were correct X 2 at the end of the case. Dr. Luigi Simon was present, scrubbed, and participated in all vital aspects of the procedure. After a brief stay in PAC-U, the patient will be admitted back to the floor for continued monitoring. Ancef will be extended for 24 hours following the procedure. Smoking cessation was again following the procedure. 12/26/17 18:29
--- NOTE | 2017-12-26 18:30 | Anesthesia Evaluation Post Op ---
Date of Encounter: 12/26/17 Time of Encounter: 18:29 - Vital Signs Vital Signs: Last Vital Signs Temp 99.7 F H 12/26/17 18:00 Pulse 90 12/26/17 18:20 Resp 16 12/26/17 18:20 BP 129/71 12/26/17 18:20 Pulse Ox 92 12/26/17 18:20 - Lungs Lungs: Clear Ascult./Percussion - Airway Airway: Non-obstructed - Cardiovascular Regular Rate - Mental Status Mental Status: Alert & Oriented, Answers Appropriately - Pain Pain Scale: 2 - Nausea Vomiting Nausea Vomiting: Not Present - Hydration Hydration: NPO - Discharge PostOp Status: Transfer Patient to floor
[2017-12-26] MEDS ORDERED: *HR* LORazepam 2 MG/ML VIAL IVP PRN (18:54)
[2017-12-26] MEDS ORDERED: Naloxone 0.4 MG/ML INJ IVP PRN (18:54)
[2017-12-26] MEDS ORDERED: CeFAZolin Syr 2,000MG/20 ML 2,000 MG/20 ML SYRINGE IVPB SCH (18:54)
[2017-12-26] MEDS ORDERED: Acetaminophen 325 MG TABLET PO PRN (18:54)
[2017-12-26] MEDS ORDERED: Ketorolac 15 MG/ML VIAL IVP PRN (18:54)
[2017-12-26] MEDS ORDERED: *HR* HYDROcodone/Acet 5/325 mg TABLET PO PRN (18:54)
[2017-12-26] MEDS ORDERED: Ipratropium/Albuterol Neb 3 ML IH PRN (18:54)
[2017-12-26] MEDS: Primidone 50 MG TABLET PO SCH (20:24)
[2017-12-26] MEDS: Nicotine 21 MG PATCH.TD24 TD SCH (20:24)
[2017-12-27] MEDS ORDERED: ceFAZolin 1,000 MG in Water for inj. (sterile) 20 ML 10 ML IVP SCH
[2017-12-27] MEDS: *HR* Heparin 5,000 UNIT/ML VIAL SQ SCH ×3 (05:12→19:43)
[2017-12-27 06:28] LABS: Hematocrit 38.2 % (37.5-50.1); Hemoglobin 13.2 g/dL (12.9-16.9); Immature Granulocytes % 0.4 % (0-4); Lymphocytes # 0.7 K/mcL (0.6-4.6); Lymphocytes % 9.1 %; Mean Corpuscular HGB Conc 34.6 g/dL (31.6-35.5); Mean Corpuscular Volume 89.7 fL (83.0-100.0); Monocytes # 0.8 K/mcL (0.0-1.3); Monocytes % 10.7 %; Platelet Count 117 K/mcL (140-400); Red Blood Count 4.26 M/mcL (4.19-5.50); Red Cell Distribution Width 13.2 % (11.5-14.5); Segmented Neutrophils % 79.8 %
[2017-12-27 06:49] LABS: BUN/Creatinine Ratio 14 (6-26); Blood Urea Nitrogen 11 mg/dL (8-23); Calcium 8.9 mg/dL (8.6-10.3); Carbon Dioxide 25 mEq/L (23-29); Chloride 97 mEq/L (98-107); Glucose 236 mg/dL (70-105); Osmolality,Calculated 275 (280-300); Potassium 4.3 mEq/L (3.5-5.1); Sodium 129 mEq/L (136-145); eGFR For Non-African Americans > 60 (> 60)
--- NOTE | 2017-12-27 07:33 | Podiatry Progress Note ---
Date of Encounter: 12/27/17 Time of Encounter: 07:31 - Assessment and Plan (1) Ankle fracture Current Visit: No Status: Acute 1. Patient progressing well on POD 1 s/p left ankle ORIF. 2. IV Ancef extended for 24 hours due to prolonged OR time and to help prevent infection. 3. Plan for dressing change tomorrow and discharge when medically stable after that point. 4. Follow up 1 week after discharge with Dr. Luigi Simon. 5. NWB left lower extremity in splint which will be changed by Podiatry tomorrow. PT and OT evaluation encouraged. Patient states that he may need a wheelchair at home. Qualifiers: Encounter type: initial encounter Fracture type: closed Laterality: left Qualified Code(s): S82.892A - Other fracture of left lower leg, initial encounter for closed fracture Subjective Principal diagnosis: left ankle fracture Interval history: Patient progressing well on POD 1 s/p left ankle ORIF. He denies pain at this time. He states the foot is still numb from the nerve block. He denies feeling or movement in the toes. Dressing is intact. He denies n/v/f/c, chest pain SOB, calf pain. Objective - Vital Signs Vital Signs: Vital Signs Temp Pulse Resp BP Pulse Ox 12/27/17 04:05 98.4 F 76 15 122/76 93 12/26/17 21:50 98.5 F 78 16 132/85 92 12/26/17 20:40 98.1 F 96 16 122/66 91 12/26/17 19:50 98.2 F 95 16 128/78 92 12/26/17 19:20 16 122/79 91 12/26/17 18:57 98.6 F 91 16 113/72 90 12/26/17 18:30 100.3 F H 88 14 123/72 94 12/26/17 18:20 90 16 129/71 92 12/26/17 18:10 78 16 104/56 96 12/26/17 18:00 99.7 F H 82 16 94/57 99 12/26/17 14:07 73 14 133/76 94 12/26/17 13:52 74 16 158/83 94 12/26/17 11:21 98.3 F 75 18 157/82 93 Intake and Output 12/26/17 12/26/17 12/27/17 15:59 23:59 07:59 Intake Total 100 / 100 Output Total 850 / 850 400 / 400 Balance -840 / -840 85 / 85 -400 / -400 Intake: IV Fluids 100 / 100 Ancef 2,000 MG In Water for inj . (sterile) 10 ML @ 200 mls/hr IVP ONCE ONE Rx#:[id number] Ancef 2,000 MG In 0.9 % Sodium 100 / 100 Chloride 100 ML @ 200 mls/hr IVPB Q8H [facility] Rx#:[id number] Output: Urine 850 / 850 400 / 400 Estimated Blood Loss - Exam Exam: Alert and oriented x3. Well-appearing. Capillary refill less than 3 seconds to all digits on left. No streaking eryth irena. Dressing c/d/i left lower extremity. Sensation diminished to toes. Unable to actively move digits left foot. No pain with calf compression. - Lab Result Diagrams: 12/27/17 06:01 12/27/17 06:01 Labs: Abnormal lab results Plt Count 117 K/mcL (140-400) L 12/27/17 06:01 PT 12.5 Seconds (9.4-12.1) H 12/25/17 03:16 Sodium 129 mEq/L (136-145) L 12/27/17 06:01 Chloride 97 mEq/L (98-107) L 12/27/17 06:01 Glucose 236 mg/dL (70-105) H 12/27/17 06:01 Calculated Osmolality 275 (280-300) L 12/27/17 06:01 Consult Discharge Plan - Plan Additional Instructions: 1. NWB left lower extremity. Keep extremity elevated. 2. Keep dressing intact, do not get it wet. 3. Recommend Lovenox 40mg subQ daily after discharge for DVT prophylaxis. 4. Follow up with Dr. Luigi Simon 1 week after discharge. Referrals: NONE,PCP [Non-Partnered Physician] -
--- NOTE | 2017-12-27 07:36 | Electrocardiograph Report ---
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
--- NOTE | 2017-12-27 08:04 | Electrocardiograph Report ---
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
[2017-12-27] MEDS: Cholecalciferol (D-3) 1,000 UNIT TABLET PO SCH (08:53)
[2017-12-27] MEDS: Folic Acid 1 MG TABLET PO SCH (08:53)
[2017-12-27] MEDS: Thiamine (B-1) 100 MG TABLET PO SCH (08:53)
[2017-12-27] MEDS: Vitamin B Complex/Vit C/Vit E 1 EACH TABLET PO SCH (08:53)
--- NOTE | 2017-12-27 11:02 | Internal Med Progress Note ---
Hospitalist Progress Note - Encounter Date of Encounter: 12/27/17 Time of Encounter: 11:00 - Exam Vitals: Temp Pulse Resp BP Pulse Ox 98.0 F 72 17 147/73 92 12/27/17 08:01 12/27/17 08:01 12/27/17 08:01 12/27/17 08:01 12/27/17 08:01 Exam: General: In no acute distress. Conversant. Respiratory exam: CTAB. no accessory muscle use, rales, rhonchi, wheezes Cardiovascular exam: RRR, +S1, +S2. no murmur, gallop, rubs. GI/Abdominal exam: Non-tender, Non-distended, normal bowel sounds, soft, no peritoneal signs. Extremities exam: no pedal edema, left leg splint present. Neurological exam: CN II-XII intact, AO X3, no focal deficits. no pronater drift, facial droop, speech deficit Skin exam: No skin rash, ulcer, purpura or ecchymosis. - Assessment and Plan (1) Ankle fracture Current Visit: No Status: Acute Assessment and Plan: POD #1 s/p left ankle ORIF. IV ancef post procedure due to prolonged OR time Plan for dressing change tomorrow and likely d/c (2) Dislocation of ankle, left, closed Current Visit: Yes Status: Inactive Assessment and Plan: 1. S/P closed reduction per Dr. Watson. See #1 (3) Alcohol intoxication Current Visit: Yes Status: Inactive Assessment and Plan: 1. Monitor clinically. 2. Will place on CIWA protocol and schedule Librium in an attempt to avoid alcohol withdrawal. 3. Will order thiamine/folate/MVI. (4) Hyponatremia Current Visit: Yes Status: Inactive Assessment and Plan: 1. Likely due to chronic alcoholism. 2. Given smoking history, will order baseline CXR as underlying lung cancer may present with SIADH. (5) DVT prophylaxis Current Visit: Yes Status: Acute Assessment and Plan: 1. Heparin SQ. - Time Spent with Patient Total time spent is greater than 50% in coordination of care (as documented) at patient's floor/unit and/or counseling patient: Internal Medicine: Result - Labs CBC & Chem 7: 12/27/17 06:01 12/27/17 06:01 Labs: Short CBC 11/20/18 Range/Units 06:01 WBC 7.5 (4.3-11.1) K/mcL Hgb 13.2 (12.9-16.9) g/dL Hct 38.2 (37.5-50.1) % Plt Count 117 L (140-400) K/mcL Neutrophils # 6.0 (1.6-8.9) K/mcL BMP 12/27/17 06:01 Sodium 129 L Potassium 4.3 Chloride 97 L Carbon Dioxide 25 BUN 11 Creatinine 0.81 Glucose 236 H Calcium 8.9 - ABG Interpretation ABG results: PT/INR, D-dimer PT 12.5 Seconds (9.4-12.1) H 12/25/17 03:16 - Impressions Impressions Tibia/Fibula X-Ray 12/26/17 08:53 IMPRESSION: Stable appearance to trimalleolar fracture of the ankle with disruption of ankle mortise relationships as above, when compared to recent CT of the ankle 12/25/2017. No new or additional acute bony abnormalities are seen. Persistent soft tissue swelling about the ankle and into the leg. No radiopaque foreign bodies or soft tissue gas. D/ / 12/26/2017 09:28:29 Edmar Her MD / [facility] Interpreting Provider: Edmar Her MD Ankle X-Ray 12/26/17 14:35 IMPRESSION: Fluoroscopy was utilized for the purposes of ankle ORIF D/ / Michael Pitts MD / Michael Pitts MD Interpreting Provider: Michael Pitts MD Fluoroscopy 12/26/17 14:35 IMPRESSION: Fluoroscopy was utilized for the purposes of ankle ORIF D/ / Michael Pitts MD / Michael Pitts MD Interpreting Provider: Michael Pitts MD Consult Discharge Plan - Plan Additional Instructions: 1. NWB left lower extremity. Keep extremity elevated. 2. Keep dressing intact, do not get it wet. 3. Recommend Lovenox 40mg subQ daily after discharge for DVT prophylaxis. 4. Follow up with Dr. Luigi Simon 1 week after discharge. Referrals: NONE,PCP [Non-Partnered Physician] - (1) Ankle fracture Qualifiers: Encounter type: initial encounter Fracture type: closed Laterality: left Qualified Code(s): S82.892A - Other fracture of left lower leg, initial encounter for closed fracture (2) Dislocation of ankle, left, closed Qualifiers: Encounter type: subsequent encounter Qualified Code(s): S93.05XD - Disloc ation of left ankle joint, subsequent encounter (3) Alcohol intoxication Qualifiers: Complication of substance-induced condition: uncomplicated Qualified Code(s): F10.920 - Alcohol use, unspecified with intoxication, uncomplicated
[2017-12-27] MEDS: Primidone 50 MG TABLET PO SCH (19:55)
[2017-12-27] MEDS: Nicotine 21 MG PATCH.TD24 TD SCH (19:56)
[2017-12-28] MEDS: *HR* Heparin 5,000 UNIT/ML VIAL SQ SCH (05:06)
[2017-12-28] MEDS: Folic Acid 1 MG TABLET PO SCH (09:08)
[2017-12-28] MEDS: Vitamin B Complex/Vit C/Vit E 1 EACH TABLET PO SCH (09:08)
[2017-12-28] MEDS: Thiamine (B-1) 100 MG TABLET PO SCH (09:08)
[2017-12-28] MEDS: Cholecalciferol (D-3) 1,000 UNIT TABLET PO SCH (09:08)
--- NOTE | 2017-12-28 10:28 | Internal Med Progress Note ---
Hospitalist Progress Note - Encounter Date of Encounter: 12/28/17 Time of Encounter: 10:25 - Exam Vitals: Temp Pulse Resp BP Pulse Ox 98.3 F 67 16 134/81 98 12/28/17 06:47 12/28/17 06:47 12/28/17 06:47 12/28/17 06:47 12/28/17 06:47 Exam: General: In no acute distress. Conversant. Respiratory exam: CTAB. no accessory muscle use, rales, rhonchi, wheezes Cardiovascular exam: RRR, +S1, +S2. no murmur, gallop, rubs. GI/Abdominal exam: Non-tender, Non-distended, normal bowel sounds, soft, no peritoneal signs. Extremities exam: no pedal edema, left leg splint present. Neurological exam: CN II-XII intact, AO X3, no focal deficits. no pronater drift, facial droop, speech deficit Skin exam: No skin rash, ulcer, purpura or ecchymosis. - Assessment and Plan (1) Ankle fracture Current Visit: Yes Status: Acute Assessment and Plan: POD #2 s/p left ankle ORIF. IV ancef post procedure due to prolonged OR time Plan for dressing change tomorrow and likely d/c (2) Dislocation of ankle, left, closed Current Visit: Yes Status: Inactive Assessment and Plan: 1. S/P closed reduction per Dr. Watson. See #1 (3) Alcohol intoxication Current Visit: Yes Status: Inactive Assessment and Plan: 1. Monitor clinically. 2. Will place on CIWA protocol and schedule Librium in an attempt to avoid alcohol withdrawal. 3. Will order thiamine/folate/MVI. (4) Hyponatremia Current Visit: Yes Status: Inactive Assessment and Plan: 1. Likely due to chronic alcoholism. 2. Given smoking history, will order baseline CXR as underlying lung cancer may present with SIADH. (5) DVT prophylaxis Current Visit: Yes Status: Acute Assessment and Plan: 1. Heparin SQ. - Time Spent with Patient Total time spent is greater than 50% in coordination of care (as documented) at patient's floor/unit and/or counseling patient: Internal Medicine: Result - Labs CBC & Chem 7: 12/27/17 06:01 12/27/17 06:01 - ABG Interpretation ABG results: PT/INR, D-dimer PT 12.5 Seconds (9.4-12.1) H 12/25/17 03:16 Consult Discharge Plan - Plan Additional Instructions: 1. NWB left lower extremity. Keep extremity elevated. 2. Keep dressing intact, do not get it wet. 3. Recommend Lovenox 40mg subQ daily after discharge for DVT prophylaxis. 4. Follow up with Dr. Luigi Simon 1 week after discharge. Referrals: Luigi Simon, DPM [Partnered Physician] - NONE,PCP [Non-Partnered Physician] - Prescriptions: HYDROcodone/Acet 5/325 mg [[place] 5-325 mg] 1 tab PO Q6HR PRN 5 Days #15 tablet PRN Reason: Moderate Pain cephALEXin [Keflex] 500 mg PO BID 7 Days #14 capsule Enoxaparin [Lovenox] 40 mg SQ DAILY 30 Days #30 syr Nicotine Patch [Nicoderm] 21 mg TD HS 30 Days #30 patch.[id number] (1) Ankle fracture Qualifiers: Encounter type: initial encounter Fracture type: closed Laterality: left Qualified Code(s): S82.892A - Other fracture of left lower leg, initial encounter for closed fracture (2) Dislocation of ankle, left, closed Qualifiers: Encounter type: subsequent encounter Qualified Code(s): S93.05XD - Dislocation of left ankle joint, subsequent encounter (3) Alcohol intoxication Qualifiers: Complication of substance-induced condition: uncomplicated Qualified Code(s): F10.920 - Alcohol use, unspecified with intoxication, uncomplicated
--- NOTE | 2017-12-28 10:50 | Podiatry Progress Note ---
Date of Encounter: 12/28/17 Time of Encounter: 10:46 - Assessment and Plan (1) Ankle fracture Current Visit: No Status: Acute Assessment Irregular superficial fracture blister noted to dorsal midfoot LLE Incision to left lateral and left medial malleolus intact. No signs of dehiscence, no signs of infection noted. Well approximated. Sutures in tact. 3/4 DP/PT pulses LLE. 1+ pitting edema noted. CFT <3 seconds HGB 13.2 WBC 7.5 PLT 117 Plan: Dressing changed. Covered incisions with petroleum gauze. Covered with 4 x 4 dry gauze. Cast padding, splint, ROSA MARIA bandage applied. NWB LLE. Do not get dressing wet. Do not attempt to change dressing Keep extremity elevated when sitting. Can d/c with keflex x 1 week. Recommend lovenox 40mg subq for 30 days. Follow up with Dr. Griggs in 1 week s/p D/C. Qualifiers: Encounter type: initial encounter Fracture type: closed Laterality: left Qualified Code(s): S82.892A - Other fracture of left lower leg, initial encounter for closed fracture Subjective Principal diagnosis: left ankle fracture Interval history: Patient sitting up in bed. Denies any overnight events. States he would like to go home. Objective - Vital Signs Vital Signs: Vital Signs Temp Pulse Resp BP Pulse Ox 12/28/17 06:47 98.3 F 67 16 134/81 98 12/28/17 02:57 98.3 F 62 15 138/76 97 12/27/17 23:44 97.6 F 65 15 148/73 96 12/27/17 20:04 94 12/27/17 19:42 98.1 F 85 14 139/80 94 12/27/17 17:05 97.9 F 101 16 146/70 93 12/27/17 11:25 97.6 F 83 16 158/78 93 Intake and Output 12/27/17 12/28/17 12/28/17 23:59 07:59 15:59 Output Total 275 / 275 Balance -275 / -275 Output: Urine 275 / 275 Other: Weight 79.5 kg 81.5 kg Patient Weight 12/28/17 23:59 Weight 81.5 kg - Exam Exam: Constitiutional: Alert and oriented x 3. Vascular: 3/4 DP/PT left foot, CFT <3 sec to all digits, warm to warm from tibia to toes left foot, no calf pain with squeeze Neurologic: Sensation to touch, normal plantar response, Normal position sense dorsiflexion/plantar flexion Dermatologic: Incision to left lateral and medial malleolus well approximated, no signs of infection, no signs of dehiscence. Superficial fracture blister noted to dorsal midfoot. Musculoskeletal: 3/5 muscle strength and normal tone bilaterally. - Lab Result Diagrams: 12/27/17 06:01 12/27/17 06:01 Labs: Abnormal lab results Plt Count 117 K/mcL (140-400) L 12/27/17 06:01 PT 12.5 Seconds (9.4-12.1) H 12/25/17 03:16 Sodium 129 mEq/L (136-145) L 12/27/17 06: Chloride 97 mEq/L (98-107) L 12/27/17 06:01 Glucose 236 mg/dL (70-105) H 12/27/17 06: Calculated Osmolality 275 (280-300) L 12/27/17 06:01 Consult Discharge Plan - Plan Additional Instructions: 1. NWB left lower extremity. Keep extremity elevated. 2. Keep dressing intact, do not get it wet. 3. Recommend Lovenox 40mg subQ daily after discharge for DVT prophylaxis. 4. Follow up with Dr. Luigi Simon 1 week after discharge. Referrals: NONE,PCP [Non-Partnered Physician] - Luigi Simon, DPM [Partnered Physician] -
--- NOTE | 2017-12-28 11:07 | Discharge Summary ---
Orders not resulted at time of discharge: Pending orders 12/26/17 13:40 US anesthesia pain block [US] Routine Date of Encounter: 12/28/17 Time of Encounter: 12:00 - Discharge Diagnosis (1) Ankle fracture Priority: Primary Status: Acute Assessment and Plan: 67 year old male who presents to [facility] in transfer from [facility] ER after sustaining a trimalleolar fracture of his left ankle. He tripped over a step at his house earlier this evening, and this led to the ankle fracture. He was somewhat intoxicated. He had an elevated alcohol level at the ER at [place]. He had his ankle reduced and splinted in the ER there by Dr. Watson. Patient was unable to go home due to intolerable pain and inability to ambulate. Therefore, a phone call was made to [facility] for transfer for surgical repair. He was assessed with a trimalleolar left ankle fracture and he underwent an ORIF by podiatry which he tolerated with no acute complications. He was seen by PT and it was recommended he should go to a SNF for rehab. He declined and was counseled regarding the risks of not going to rehab since he is non weight bearing including repeat falls, and infection of the left foot, but he continued to refuse rehab. he was discharged on a one weeik course of keflex, bedside commode and a knee scooter. He was discharged in a stable condition Qualifiers: Encounter type: initial encounter Fracture type: closed Laterality: left Qualified Code(s): S82.892A - Other fracture of left lower leg, initial encounter for closed fracture (2) Dislocation of ankle, left, closed Priority: Primary Status: Inactive Qualifiers: Encounter type: subsequent encounter Qualified Code(s): S93.05XD - Dislocation of left ankle joint, subsequent encounter (3) Alcohol intoxication Priority: Primary Status: Inactive Qualifiers: Complication of substance-induced condition: uncomplicated Qualified Code(s): F10.920 - Alcohol use, unspecified with intoxication, uncomplicated (4) Hyponatremia Priority: Primary Status: Inactive (5) DVT prophylaxis Priority: Primary Status: Acute Hospital course: Mr. Kyle is a 67 year old male - Time Spent with Patient Total time spent providing and/or coordinating discharge services: - Discharge Medications Prescriptions: HYDROcodone/Acet 5/325 mg [[place] 5-325 mg] 1 tab PO Q6HR PRN 5 Days #15 tablet PRN Reason: Moderate Pain cephALEXin [Keflex] 500 mg PO BID 7 Days #14 capsule Enoxaparin [Lovenox] 40 mg SQ DAILY 30 Days #30 syr Nicotine Patch [Nicoderm] 21 mg TD HS 30 Days #30 patch.td24 Home Medications: Aspirin [Adult Aspirin Regimen] 81 mg PO DAILY 12/25/17 [History] Buspirone HCl [Buspar] 10 mg PO BID 12/25/17 [History] Calcium Carbonate/Vitamin D3 [Calcium 500-Vit D3 200 Tablet] 1 each PO BID 12/25/17 [History] Cholecalciferol (Vitamin D3) [Vitamin D3] 1,000 unit PO DAILY 12/25/17 [History] Guaifenesin [Mucinex] 600 mg PO HS 12/25/17 [History] Primidone [Mysoline] 50 mg PO HS 12/25/17 [History] Propranolol HCl 10 mg PO TID 12/25/17 [History] Simvastatin [Zocor] 20 mg PO HS 12/25/17 [History] Enoxaparin [Lovenox] 40 mg SQ DAILY 30 Days #30 syr 12/28/17 [Rx] HYDROcodone/Acet 5/325 mg [[place] 5-325 mg] 1 tab PO Q6HR PRN 5 Days #15 tablet 12/28/17 [Rx] Nicotine Patch [Nicoderm] 21 mg TD HS 30 Days #30 patch.td24 12/28/17 [Rx] cephALEXin [Keflex] 500 mg PO BID 7 Days #14 capsule 12/28/17 [Rx] Allergies/Adverse Reactions: Allergy/AdvReac Type Severity Reaction Status Date / Time No Known Allergies Allergy Verified 12/24/17 19:44 Date of admission: 12/26/17 15:54 [facility] care physician[facility] Consults: 12/24/17 23:06 Consult to Physician [CONS] Routine Consulting Provider: Luigi Simon Reason for Consult: ankle fracture Call Completed: Yes 12/27/17 07:56 Consult to Occupational Therapy [CONS] Routine Comment: Evaluate, develop and implement POC Reason for Consult: S/p left ankle ORIF Does patient have active BEDREST order?: No Is patient medically & hemodynamically stable?: Yes Consult to Physical Therapy [CONS] Routine Comment: Evaluate, develop and implement POC Reason for Consult: S/p left ankle ORIF Does patient have active BEDREST order?: No Is patient medically & hemodynamically stable?: Yes 12/27/17 11:43 Consult to [employer] [CONS] Routine Reason for SW Consult: Possible HH/rehab needed s/p L ankle ORIF (NWB LLE) - Constitutional Vitals: Temp Pulse Resp BP Pulse Ox 98.3 F 67 16 134/81 98 12/28/17 06:47 12/28/17 06:47 12/28/17 06:47 12/28/17 06:47 12/28/17 06:47 General appearance: Present: cooperative, A&O X 3, pleasant, no acute distress, answers questions appropriately Exam: General: In no acute distress. Conversant. Respiratory exam: CTAB. no accessory muscle use, rales, rhonchi, wheezes Cardiovascular exam: RRR, +S1, +S2. no murmur, gallop, rubs. GI/Abdominal exam: Non-tender, Non-distended, normal bowel sounds, soft, no per itoneal signs. Extremities exam: no pedal edema, left leg splint present. Neurological exam: CN II-XII intact, AO X3, no focal deficits. no pronater drift, facial droop, speech deficit Skin exam: No skin rash, ulcer, purpura or ecchymosis. - Patient Status Disposition: Home, Self-Care Condition: Good - Discharge Instructions Follow Up With: Luigi Simon, DPM [Partnered Physician] - NONE,PCP [Non-Partnered Physician] - Additional Instructions: 1. NWB left lower extremity. Keep extremity elevated. 2. Keep dressing intact, do not get it wet. 3. Recommend Lovenox 40mg subQ daily after discharge for DVT prophylaxis. 4. Follow up with Dr. Luigi Simon 1 week after discharge. - Diet and Activity Diet: advance to your usual diet
--- NOTE | 2017-12-28 11:11 | Physician Discharge Referral ---
Home Health/Hosp Referral Info Transfer to: Home Health - Diagnosis (1) Ankle fracture Priority: Primary Status: Acute (2) Dislocation of ankle, left, closed Priority: Primary Status: Inactive (3) Alcohol intoxication Priority: Primary Status: Inactive (4) Hyponatremia Status: Inactive (5) DVT prophylaxis Status: Acute - Respiratory Orders Smoking Cessation: Smoking cessation has been advised. For more information, call the [employer] Quit Line at 0-069-FRKS-NOW. - Diet/Nutrition Diet/Nutrition Orders: Cardiac - Activity Activity: List: knee sccoter, non weight bearing on left lower extremity - Services Needed Following services are medically necessary services: Nursing, Home Health Aide, Physical Therapy - Transfer Medications Prescriptions: HYDROcodone/Acet 5/325 mg [[place] 5-325 mg] 1 tab PO Q6HR PRN 5 Days #15 tablet PRN Reason: Moderate Pain cephALEXin [Keflex] 500 mg PO BID 7 Days #14 capsule Enoxaparin [Lovenox] 40 mg SQ DAILY 30 Days #30 syr Nicotine Patch [Nicoderm] 21 mg TD HS 30 Days #30 patch.td24 Home Medications: Aspirin [Adult Aspirin Regimen] 81 mg PO DAILY 12/25/17 [History] Buspirone HCl [Buspar] 10 mg PO BID 12/25/17 [History] Calcium Carbonate/Vitamin D3 [Calcium 500-Vit D3 200 Tablet] 1 each PO BID 12/25/17 [History] Cholecalciferol (Vitamin D3) [Vitamin D3] 1,000 unit PO DAILY 12/25/17 [History] Guaifenesin [Mucinex] 600 mg PO HS 12/25/17 [History] Primidone [Mysoline] 50 mg PO HS 12/25/17 [History] Propranolol HCl 10 mg PO TID 12/25/17 [History] Simvastatin [Zocor] 20 mg PO HS 12/25/17 [History] Enoxaparin [Lovenox] 40 mg SQ DAILY 30 Days #30 syr 12/28/17 [Rx] HYDROcodone/Acet 5/325 mg [[place] 5-325 mg] 1 tab PO Q6HR PRN 5 Days #15 tablet 12/28/17 [Rx] Nicotine Patch [Nicoderm] 21 mg TD HS 30 Days #30 patch.td24 12/28/17 [Rx] cephALEXin [Keflex] 500 mg PO BID 7 Days #14 capsule 12/28/17 [Rx] Allergies/Adverse Reactions: Allergy/AdvReac Type Severity Reaction Status Date / Time No Known Allergies Allergy Verified 12/24/17 19:44 Certification: Further, I certify that my clinical findings support that this patient is homebound (i.e. absences from home require considerable and taxing effort and are for medical reasons or adventism services or infrequently or short duration when for other reasons) because: Homebound Reason: Patient requires assistance of a person or device to safely leave home Attestation: My signature below is to certify that this patient is under my care and that I, or nurse practitioner, or a physician's insurance account assistant working with me, has a [id number] encounter with this patient.
[2017-12-28 11:16] VITALS: BP 135/72
== END 2017-12-28 14:30 | disposition home or self-care (01) | DRG 493 ==
LOC: 3NENU → SUATTDRO 22:36
PROVIDERS: ADMIT Pediatrics; ATTEND Internal Medicine

== ENCOUNTER 2019-12-05 12:52 | Inpatient (IN) ==
[2019-12-05 13:29] LABS: Basophils % 0.1 %; Hematocrit 41.6 % (37.5-50.1); Hemoglobin 14.5 g/dL (12.9-16.9); Immature Granulocytes % 1.1 % (0-4); Lymphocytes # 1.3 K/mcL (0.6-4.6); Lymphocytes % 17.1 %; Mean Corpuscular HGB Conc 34.9 g/dL (31.6-35.5); Mean Corpuscular Hemoglobin 32.2 pg (28.0-33.3); Mean Corpuscular Volume 92.4 fL (83.0-100.0); Mean Platelet Volume 9.4 fL (9.4-12.4); Monocytes # 0.8 K/mcL (0.0-1.3); Neutrophils # 5.4 K/mcL (1.6-8.9); Platelet Count 180 K/mcL (140-400); Segmented Neutrophils % 71.7 %; White Blood Count 7.5 K/mcL (4.3-11.1)
[2019-12-05 13:36] LABS: INR 1.1; Prothrombin Time 12.8 Seconds (9.4-12.1)
[2019-12-05 13:39] LABS: Activated Partial Thrombo Time 27.8 Seconds (26.0-36.0)
[2019-12-05 13:46] LABS: Bilirubin,Urine Negative (Negative); Blood,Urine Negative (Negative); Clarity,Urine Clear (Clear); Color,Urine Light-Yellow (Yellow); Glucose,Urine (UA) Normal (Normal); Ketones,Urine 40 mg/dL (Negative); Leukocyte Esterase,Urine Negative (Negative); Nitrite,Urine Negative (Negative); PH,Urine 6.5 pH Units (5.0-8.0); Protein,Urine Negative (Neg-Trace); Specific Gravity,Urine 1.015 (1.010-1.025); Urobilinogen,Urine Normal (Normal)
[2019-12-05 13:48] LABS: BUN/Creatinine Ratio 17 (6-26); Blood Urea Nitrogen 8 mg/dL (8-23); Calcium 8.9 mg/dL (8.6-10.3); Carbon Dioxide 28 mEq/L (23-29); Chloride 98 mEq/L (98-107); Glucose 118 mg/dL (70-105); Osmolality,Calculated 277 (280-300); Potassium 4.1 mEq/L (3.5-5.1); Sodium 134 mEq/L (136-145); eGFR For African Americans > 60 (> 60); eGFR For Non-African Americans > 60 (> 60)
[2019-12-05] MEDS ORDERED: *HR* FentaNYL (PF) 100 MCG/2 ML VIAL IVP ONE (14:04)
[2019-12-05] MEDS ORDERED: Naloxone 0.4 MG/ML INJ IVP PRN (14:19)
[2019-12-05] MEDS ORDERED: Ondansetron 4 MG/2 ML VIAL IVP PRN (14:19)
[2019-12-05] MEDS ORDERED: Nicotine 2 MG GUM BC PRN (15:19)
[2019-12-05] MEDS: Tiotropium 18 MCG inhalation IH SCH (16:37)
[2019-12-05] MEDS: Thiamine (B-1) 100 MG, Folic Acid 1 MG, MVI, adult with vitamin K 10 ML in 0.9 % Sodi... IVPB SCH (16:43)
[2019-12-05] MEDS: Nicotine 21 MG PATCH.TD24 TD SCH (16:43)
[2019-12-05] MEDS: Beer can PO SCH ×2 (17:21→21:58)
[2019-12-05] MEDS ORDERED: Famotidine 20 MG/2 ML VIAL IVP ONE (18:02)
[2019-12-05] MEDS ORDERED: Ringers Solution, Lactated 1,000 ML IVC SCH (18:15)
[2019-12-05] MEDS: Primidone 50 MG TABLET PO SCH (21:32)
[2019-12-05] MEDS: *HR* HYDROcodone/Acet 5/325 mg TABLET PO PRN (22:00)
[2019-12-06] MEDS ORDERED: CeFAZolin 2 GM/120 ML BAG IVPB ONE (00:01)
[2019-12-06 01:21] LABS: Hematocrit 38.9 % (37.5-50.1); Hemoglobin 13.1 g/dL (12.9-16.9); Mean Corpuscular HGB Conc 33.7 g/dL (31.6-35.5); Mean Corpuscular Hemoglobin 31.6 pg (28.0-33.3); Mean Corpuscular Volume 93.7 fL (83.0-100.0); Mean Platelet Volume 9.5 fL (9.4-12.4); Platelet Count 181 K/mcL (140-400); Red Blood Count 4.15 M/mcL (4.19-5.50); Red Cell Distribution Width 14.1 % (11.5-14.5); White Blood Count 7.2 K/mcL (4.3-11.1)
[2019-12-06 01:40] LABS: BUN/Creatinine Ratio 14 (6-26); Blood Urea Nitrogen 7 mg/dL (8-23); Calcium 7.8 mg/dL (8.6-10.3); Carbon Dioxide 25 mEq/L (23-29); Chloride 99 mEq/L (98-107); Glucose 91 mg/dL (70-105); Magnesium 1.8 mg/dL (1.6-2.6); Osmolality,Calculated 272 (280-300); Potassium 3.4 mEq/L (3.5-5.1); Sodium 132 mEq/L (136-145); eGFR For African Americans > 60 (> 60); eGFR For Non-African Americans > 60 (> 60)
[2019-12-06] MEDS: *HR* OxyCODONE Immed Rel 5 MG TABLET PO PRN (07:11)
[2019-12-06] MEDS ORDERED: Vancomycin 1,000 MG VIAL ONE (07:18)
[2019-12-06] MEDS ORDERED: *HR* Midazolam HCl 2 MG/2 ML VIAL ONE ×2 (07:19→10:22)
[2019-12-06] MEDS ORDERED: *HR* Propofol 200 MG/20 ML VIAL IVP ONE (07:19)
[2019-12-06] MEDS ORDERED: *HR* FentaNYL (PF) 100 MCG/2 ML VIAL ONE (07:19)
[2019-12-06] MEDS ORDERED: *HR* Succinylcholine 200 MG/10 ML VIAL IVP ONE (07:25)
[2019-12-06] MEDS ORDERED: Dexamethasone 4 MG/ML VIAL ONE (07:25)
[2019-12-06] MEDS ORDERED: Lidocaine -MPF 2% 2 ML VIAL ONE ×2 (07:25→07:58)
[2019-12-06] MEDS ORDERED: *HR* Rocuronium Bromide 50 MG/5 ML VIAL ONE (07:25)
[2019-12-06] MEDS ORDERED: Tranexamic Acid 1,000 MG/10 ML VIAL ONE (07:27)
[2019-12-06] MEDS ORDERED: Lidocaine -MPF 4% 5 ML AMPUL ONE (07:28)
[2019-12-06] MEDS ORDERED: *HR* LORazepam 2 MG/ML VIAL IVP ONE (07:39)
[2019-12-06] MEDS ORDERED: TOTAL JOINT MIXTURE (100ML) INTRAART ONE (07:45)
[2019-12-06] MEDS ORDERED: Povidone-Iodine 45 ML, Sodium Chloride IRRigation 1,000 ML IR ONE (07:45)
[2019-12-06] MEDS ORDERED: EPHEDrine 50 MG/ML VIAL ONE (08:21)
[2019-12-06] MEDS ORDERED: ceFAZolin 2,000 MG in Water for inj. (sterile) 20 ML IVP ONE (08:22)
[2019-12-06] MEDS ORDERED: Naloxone 0.4 MG/ML INJ IVP PRN ×2 (08:30→14:05)
[2019-12-06] MEDS ORDERED: *HR* FentaNYL (PF) 100 MCG/2 ML VIAL IVP PRN (08:30)
[2019-12-06] MEDS ORDERED: *HR* HYDROmorphone PF 0.5 MG/0.5 ML SYRINGE IVP PRN (08:30)
[2019-12-06] MEDS ORDERED: Ondansetron 4 MG/2 ML VIAL IVP PRN (08:30)
[2019-12-06] MEDS ORDERED: *HR* PHENYLEPHRINE 1,000 MCG/10 ML SYRINGE IVP ONE (08:57)
[2019-12-06] MEDS: Tiotropium 18 MCG inhalation IH SCH (10:24)
[2019-12-06] MEDS ORDERED: Ringers Solution, Lactated 1,000 ML ONE (11:57)
[2019-12-06] MEDS: Beer can PO SCH ×2 (12:16→12:44)
[2019-12-06] MEDS ORDERED: *HR* LORazepam 2 MG/ML VIAL IVP PRN ×3 (13:27)
[2019-12-06] MEDS ORDERED: *HR* Promethazine 25 MG/ML VIAL IM PRN (14:05)
[2019-12-06] MEDS ORDERED: MOM Conc 10 ML UD.LIQ PO PRN (14:05)
[2019-12-06] MEDS ORDERED: Sennosides 8.6 MG TABLET PO PRN (14:05)
[2019-12-06] MEDS ORDERED: Ringers Solution, Lactated 1,000 ML IVC SCH (14:15)
[2019-12-06] MEDS: Nicotine 21 MG PATCH.TD24 TD SCH (14:15)
[2019-12-06] MEDS: amLODIPine 5 MG TABLET PO SCH (14:16)
[2019-12-06] MEDS: Aspirin Enteric Coated 81 MG Tablet PO SCH (14:17)
[2019-12-06] MEDS: Thiamine (B-1) 100 MG, Folic Acid 1 MG, MVI, adult with vitamin K 10 ML in 0.9 % Sodi... IVPB SCH (17:45)
[2019-12-06] MEDS: *HR* Heparin 5,000 UNIT/ML VIAL SQ SCH ×2 (17:48→20:15)
[2019-12-06] MEDS: Ascorbic Acid 500 MG TABLET PO SCH (17:49)
[2019-12-06] MEDS: CeFAZolin 2 GM/120 ML BAG IVPB SCH (17:49)
[2019-12-06] MEDS: Primidone 50 MG TABLET PO SCH (21:15)
[2019-12-06] MEDS: Cholecalciferol (D-3) 1,000 UNIT (25MCG) TABLET PO SCH (21:16)
[2019-12-07] MEDS: CeFAZolin 2 GM/120 ML BAG IVPB SCH (00:39)
[2019-12-07] MEDS: *HR* OxyCODONE Immed Rel 5 MG TABLET PO PRN ×2 (04:45→21:48)
[2019-12-07 05:15] LABS: Hematocrit 31.6 % (37.5-50.1); Hemoglobin 10.9 g/dL (12.9-16.9); Mean Corpuscular HGB Conc 34.5 g/dL (31.6-35.5); Mean Corpuscular Hemoglobin 32.5 pg (28.0-33.3); Mean Corpuscular Volume 94.3 fL (83.0-100.0); Mean Platelet Volume 9.6 fL (9.4-12.4); Platelet Count 148 K/mcL (140-400); Red Blood Count 3.35 M/mcL (4.19-5.50); Red Cell Distribution Width 13.8 % (11.5-14.5); White Blood Count 8.1 K/mcL (4.3-11.1)
[2019-12-07] MEDS: *HR* Heparin 5,000 UNIT/ML VIAL SQ SCH (05:21)
[2019-12-07 05:39] LABS: BUN/Creatinine Ratio 16 (6-26); Blood Urea Nitrogen 7 mg/dL (8-23); Calcium 7.9 mg/dL (8.6-10.3); Carbon Dioxide 28 mEq/L (23-29); Chloride 98 mEq/L (98-107); Glucose 125 mg/dL (70-105); Osmolality,Calculated 269 (280-300); Potassium 3.7 mEq/L (3.5-5.1); Sodium 130 mEq/L (136-145); eGFR For African Americans > 60 (> 60); eGFR For Non-African Americans > 60 (> 60)
[2019-12-07] MEDS: Tiotropium 18 MCG inhalation IH SCH (08:14)
[2019-12-07] MEDS ORDERED: Aspirin Enteric Coated 81 MG Tablet PO SCH (09:00)
[2019-12-07] MEDS: amLODIPine 5 MG TABLET PO SCH (10:34)
[2019-12-07] MEDS: Azithromycin 250 MG TABLET PO SCH (10:36)
[2019-12-07] MEDS: Aspirin Enteric Coated 81 MG Tablet PO SCH (10:36)
[2019-12-07] MEDS: predniSONE 20 MG TABLET PO SCH (10:36)
[2019-12-07] MEDS: Folic Acid 1 MG TABLET PO SCH (10:37)
[2019-12-07] MEDS: Ascorbic Acid 500 MG TABLET PO SCH ×2 (10:37→17:53)
[2019-12-07] MEDS: Thiamine (B-1) 100 MG TABLET PO SCH (10:37)
[2019-12-07] MEDS: Multivit/Ca/Min/Fe/FA 1 TAB TABLET PO SCH (10:37)
[2019-12-07] MEDS: Nicotine 21 MG PATCH.TD24 TD SCH (10:37)
[2019-12-07] MEDS: Ipratropium/Albuterol Neb 3 ML IH SCH ×3 (10:41→22:01)
[2019-12-07] MEDS: Thiamine (B-1) 100 MG, Folic Acid 1 MG, MVI, adult with vitamin K 10 ML in 0.9 % Sodi... IVPB SCH (17:54)
[2019-12-07] MEDS ORDERED: cephALEXin 500 MG CAPSULE PO SCH (21:00)
[2019-12-07] MEDS: Primidone 50 MG TABLET PO SCH (21:48)
[2019-12-07] MEDS: Cholecalciferol (D-3) 1,000 UNIT (25MCG) TABLET PO SCH (21:48)
[2019-12-07] MEDS: Piperacillin/Tazobactam 3.375 GM in 0.9 % Sodium Chloride Mini Bag 100 ML IVPB SCH (21:48)
[2019-12-08] MEDS: Ipratropium/Albuterol Neb 3 ML IH SCH ×4 (03:58→22:01)
[2019-12-08] MEDS: Piperacillin/Tazobactam 3.375 GM in 0.9 % Sodium Chloride Mini Bag 100 ML IVPB SCH ×3 (04:50→21:43)
[2019-12-08] MEDS: Multivit/Ca/Min/Fe/FA 1 TAB TABLET PO SCH (08:04)
[2019-12-08] MEDS: Azithromycin 250 MG TABLET PO SCH (08:04)
[2019-12-08] MEDS: Thiamine (B-1) 100 MG TABLET PO SCH (08:04)
[2019-12-08] MEDS: predniSONE 20 MG TABLET PO SCH (08:05)
[2019-12-08] MEDS: Ascorbic Acid 500 MG TABLET PO SCH ×2 (08:05→16:06)
[2019-12-08] MEDS: Folic Acid 1 MG TABLET PO SCH (08:05)
[2019-12-08] MEDS: Aspirin Enteric Coated 81 MG Tablet PO SCH (08:05)
[2019-12-08] MEDS: Nicotine 21 MG PATCH.TD24 TD SCH (08:05)
[2019-12-08] MEDS: amLODIPine 5 MG TABLET PO SCH (08:05)
[2019-12-08] MEDS: *HR* HYDROcodone/Acet 5/325 mg TABLET PO PRN ×2 (08:18→12:31)
[2019-12-08] MEDS: Tiotropium 18 MCG inhalation IH SCH (10:17)
[2019-12-08 15:14] LABS: Hematocrit 33.4 % (37.5-50.1); Hemoglobin 11.2 g/dL (12.9-16.9); Mean Corpuscular HGB Conc 33.5 g/dL (31.6-35.5); Mean Corpuscular Hemoglobin 31.6 pg (28.0-33.3); Mean Corpuscular Volume 94.4 fL (83.0-100.0); Mean Platelet Volume 9.5 fL (9.4-12.4); Platelet Count 170 K/mcL (140-400); Red Blood Count 3.54 M/mcL (4.19-5.50); Red Cell Distribution Width 14.1 % (11.5-14.5); White Blood Count 8.4 K/mcL (4.3-11.1)
[2019-12-08 15:21] LABS: BUN/Creatinine Ratio 17 (6-26); Blood Urea Nitrogen 9 mg/dL (8-23); Calcium 8.6 mg/dL (8.6-10.3); Carbon Dioxide 29 mEq/L (23-29); Chloride 98 mEq/L (98-107); Glucose 220 mg/dL (70-105); Osmolality,Calculated 279 (280-300); Potassium 3.7 mEq/L (3.5-5.1); Sodium 132 mEq/L (136-145); eGFR For African Americans > 60 (> 60); eGFR For Non-African Americans > 60 (> 60)
[2019-12-08] MEDS ORDERED: *HR* Rivaroxaban 10 MG TABLET PO SCH (17:00)
[2019-12-08] MEDS: *HR* Heparin 5,000 UNIT/ML VIAL SQ SCH (17:55)
[2019-12-08] MEDS: Primidone 50 MG TABLET PO SCH (21:42)
[2019-12-08] MEDS: Cholecalciferol (D-3) 1,000 UNIT (25MCG) TABLET PO SCH (21:42)
[2019-12-08] MEDS: *HR* OxyCODONE Immed Rel 5 MG TABLET PO PRN (21:43)
[2019-12-09] MEDS: Ipratropium/Albuterol Neb 3 ML IH SCH ×4 (04:02→21:16)
[2019-12-09] MEDS: Piperacillin/Tazobactam 3.375 GM in 0.9 % Sodium Chloride Mini Bag 100 ML IVPB SCH ×3 (05:07→19:48)
[2019-12-09] MEDS: *HR* Heparin 5,000 UNIT/ML VIAL SQ SCH (05:08)
[2019-12-09 06:09] LABS: Hematocrit 30.5 % (37.5-50.1); Hemoglobin 10.5 g/dL (12.9-16.9); Mean Corpuscular HGB Conc 34.4 g/dL (31.6-35.5); Mean Corpuscular Volume 95.9 fL (83.0-100.0); Mean Platelet Volume 9.8 fL (9.4-12.4); Platelet Count 167 K/mcL (140-400); Red Blood Count 3.18 M/mcL (4.19-5.50); White Blood Count 8.8 K/mcL (4.3-11.1)
[2019-12-09 06:30] LABS: BUN/Creatinine Ratio 14 (6-26); Blood Urea Nitrogen 6 mg/dL (8-23); Calcium 8.4 mg/dL (8.6-10.3); Carbon Dioxide 30 mEq/L (23-29); Chloride 99 mEq/L (98-107); Glucose 92 mg/dL (70-105); Osmolality,Calculated 275 (280-300); Potassium 3.3 mEq/L (3.5-5.1); Sodium 134 mEq/L (136-145); eGFR For African Americans > 60 (> 60); eGFR For Non-African Americans > 60 (> 60)
[2019-12-09] MEDS ORDERED: Potassium Chloride Elixir 20 MEQ/15 ML UDC PO ONE (07:48)
[2019-12-09] MEDS: Nicotine 21 MG PATCH.TD24 TD SCH (08:55)
[2019-12-09] MEDS: Folic Acid 1 MG TABLET PO SCH (08:55)
[2019-12-09] MEDS: Azithromycin 250 MG TABLET PO SCH (08:55)
[2019-12-09] MEDS: Thiamine (B-1) 100 MG TABLET PO SCH (08:55)
[2019-12-09] MEDS: *HR* OxyCODONE Immed Rel 5 MG TABLET PO PRN (08:55)
[2019-12-09] MEDS: Multivit/Ca/Min/Fe/FA 1 TAB TABLET PO SCH (08:55)
[2019-12-09] MEDS: Aspirin 81 MG TAB.CHEW PO SCH (08:55)
[2019-12-09] MEDS: predniSONE 20 MG TABLET PO SCH (08:56)
[2019-12-09] MEDS: Ascorbic Acid 500 MG TABLET PO SCH ×2 (08:56→16:05)
[2019-12-09] MEDS: amLODIPine 5 MG TABLET PO SCH (08:56)
[2019-12-09] MEDS: Tiotropium 18 MCG inhalation IH SCH (10:02)
[2019-12-09] MEDS: *HR* HYDROcodone/Acet 5/325 mg TABLET PO PRN (16:05)
[2019-12-09] MEDS: Cholecalciferol (D-3) 1,000 UNIT (25MCG) TABLET PO SCH (19:48)
[2019-12-09] MEDS: Primidone 50 MG TABLET PO SCH (19:48)
[2019-12-10] MEDS: Ipratropium/Albuterol Neb 3 ML IH SCH ×2 (04:12→09:55)
[2019-12-10 04:49] LABS: Hematocrit 31.7 % (37.5-50.1); Hemoglobin 10.9 g/dL (12.9-16.9); Mean Corpuscular HGB Conc 34.4 g/dL (31.6-35.5); Mean Corpuscular Hemoglobin 32.6 pg (28.0-33.3); Mean Corpuscular Volume 94.9 fL (83.0-100.0); Mean Platelet Volume 9.6 fL (9.4-12.4); Platelet Count 189 K/mcL (140-400); Red Blood Count 3.34 M/mcL (4.19-5.50); White Blood Count 8.5 K/mcL (4.3-11.1)
[2019-12-10 05:07] LABS: BUN/Creatinine Ratio 18 (6-26); Blood Urea Nitrogen 9 mg/dL (8-23); Calcium 8.5 mg/dL (8.6-10.3); Carbon Dioxide 29 mEq/L (23-29); Chloride 99 mEq/L (98-107); Glucose 107 mg/dL (70-105); Osmolality,Calculated 279 (280-300); Potassium 3.7 mEq/L (3.5-5.1); Sodium 135 mEq/L (136-145); eGFR For African Americans > 60 (> 60); eGFR For Non-African Americans > 60 (> 60)
[2019-12-10] MEDS: Piperacillin/Tazobactam 3.375 GM in 0.9 % Sodium Chloride Mini Bag 100 ML IVPB SCH (06:06)
[2019-12-10] MEDS: Azithromycin 250 MG TABLET PO SCH (07:10)
[2019-12-10] MEDS: Nicotine 21 MG PATCH.TD24 TD SCH (07:10)
[2019-12-10] MEDS: amLODIPine 5 MG TABLET PO SCH (07:11)
[2019-12-10] MEDS: Multivit/Ca/Min/Fe/FA 1 TAB TABLET PO SCH (07:11)
[2019-12-10] MEDS: predniSONE 20 MG TABLET PO SCH (07:11)
[2019-12-10] MEDS: Thiamine (B-1) 100 MG TABLET PO SCH (07:11)
[2019-12-10] MEDS: Folic Acid 1 MG TABLET PO SCH (07:11)
[2019-12-10] MEDS: Aspirin 81 MG TAB.CHEW PO SCH (07:11)
[2019-12-10] MEDS: Ascorbic Acid 500 MG TABLET PO SCH (07:11)
[2019-12-10] MEDS: *HR* HYDROcodone/Acet 5/325 mg TABLET PO PRN (07:12)
[2019-12-10] MEDS: Tiotropium 18 MCG inhalation IH SCH (09:54)
[2019-12-10 10:39] VITALS: BP 123/72
== END 2019-12-10 16:36 | disposition home health service (06) | DRG 521 ==
LOC: EMEROOARM 12:52 → 3NENU 12:52 → SUATTDRO 15:24 → 3NENU 15:49
PROVIDERS: ADMIT Internal Medicine; ATTEND Internal Medicine